=== PATIENT | male | born 1970 | race Caucasian/White ===

== ENCOUNTER 2024-06-29 18:49 | Inpatient (IN) | payer OTHER ==
[~2024-06-29] VITALS: Ht 167.6 cm; Wt 79.2 kg
[2024-06-29] MEDS: SODIUM CHLORIDE 0.9% 500 ML IV ONE (20:56)
[2024-06-29 21:00] LABS: BASOPHILS % (AUTO) 0.4 % (0.0-2.0); EOSINOPHILS % (AUTO) 0.2 % (1.0-6.0); HEMOGLOBIN 15.6 g/dL (13.5-17.5); LYMPHOCYTES # (AUTO) 0.8 K/uL (1.0-4.8); MEAN CORPUSCULAR HEMOGLOBIN 32.4 pg (26.0-34.0); MEAN CORPUSCULAR HGB CONC 32.5 G/dL (31.0-37.0); MEAN CORPUSCULAR VOLUME 100 fL (80-100); MONOCYTES # (AUTO) 0.7 K/uL (0.1-1.0); MONOCYTES % (AUTO) 6.4 % (2.0-9.0); PLATELET COUNT (AUTO) 281 K/uL (150-450); RED BLOOD CELL COUNT(AUTO) 4.81 MIL/uL (4.50-5.90); RED CELL DISTRIBUTION WIDTH 14.3 % (11.5-14.5); WHITE BLOOD COUNT (AUTO) 11.6 K/uL (4.5-11.0)
[2024-06-29 21:18] LABS: ALANINE AMINOTRANSFERASE 14 U/L (12-78); ALBUMIN 1.9 g/dL (3.4-5.0); ALKALINE PHOSPHATASE 141 U/L (46-116); ANION GAP 14 mmol/L (8-16); ASPARTATE AMINOTRANSFERASE 16 U/L (15-37); BILIRUBIN,TOTAL 0.8 mg/dL (0.1-1.0); CALCIUM, TOTAL 8.4 mg/dL (8.8-10.5); CARBON DIOXIDE 22 mmol/L (22-29); CHLORIDE 99 mmol/L (98-107); CREATININE 0.95 mg/dL (0.60-1.30); GLOMERULAR FILTR. RATE CALC > 60 mL/min (>60); LIPASE 13 U/L (16-77); POTASSIUM 4.8 mmol/L (3.5-5.1); SODIUM SERUM 135 mmol/L (136-145); TOTAL PROTEIN, SERUM 6.2 g/dL (6.4-8.2); UREA NITROGEN, BLOOD 12 mg/dL (7-18)
[2024-06-29 21:22] LABS: APPEARANCE,URINE CLEAR (CLEAR); BILIRUBIN,URINE NEGATIVE (NEGATIVE); COLOR,URINE LIGHT YELLOW (YELLOW); GLUCOSE, URINE (UA) >=1000 mg/dL (NEGATIVE); KETONES,URINE 40-60 mg/dL (NEGATIVE); LEUKOCYTE ESTERASE ,URINE MODERATE (NEGATIVE); NITRATE,URINE NEGATIVE (NEGATIVE); OCCULT BLOOD,URINE SMALL (NEGATIVE); PROTEIN,URINE 100-200,SEE CONFIRM mg/dL (NEGATIVE); SPECIFIC GRAVITIY, URINE 1.041 (1.003-1.030); UROBILINOGEN,URINE <=1.0 mg/dL (<=1.0)
[2024-06-29 21:26] LABS: GLUCOSE,RANDOM 413 mg/dL (70-110)
[2024-06-29 21:27] LABS: ACETONE,BLOOD 1:16 (NEGATIVE)
[2024-06-29 21:32] LABS: BACTERIA,URINE Few /HPF (None Seen); RBC,URINE 0-2 /HPF (0-2); SQUAMOUS EPITHELIAL CELL,UR Few /LPF (None Seen); SULFOSALICYLIC ACID,URINE 2+ (Negative); YEAST,URINE Moderate /HPF (None Seen)
[2024-06-29] MEDS: INSULIN REGULAR, HUMAN 100 UNITS/ML IVP ONE (21:36)
[2024-06-29] MEDS: CLINDAMYCIN 600 MG/D5% WATER 50 ML IV ONE (23:06)
[2024-06-29] MEDS: VANCOMYCIN 1.25 GM/WATER(PEG) 250 ML IV ONE (23:07)
[2024-06-29] MEDS ORDERED: IPRATROPIUM BROMIDE 0.5 MG/2.5 ML NEB SOLUTION NEB PRN (23:45)
[2024-06-29] MEDS ORDERED: MORPHINE SULFATE 2 MG/ML SYRINGE IVP PRN (23:45)
[2024-06-29] MEDS ORDERED: MAGNESIUM HYDROXIDE SUSPENSION 30 ML UDCUP PO PRN (23:45)
[2024-06-29] MEDS ORDERED: ACETAMINOPHEN 325 MG TABLET PO PRN (23:45)
[2024-06-29] MEDS ORDERED: ALBUTEROL SULFATE 2.5 MG/0.5 ML NEB SOLUTION NEB PRN (23:45)
[2024-06-29] MEDS ORDERED: BISACODYL 10 MG RECTAL RECTAL SUPPOSITORY PR PRN (23:45)
[2024-06-29] MEDS ORDERED: ONDANSETRON HCL 4 MG/2 ML VIAL IVP PRN (23:45)
[2024-06-29] MEDS ORDERED: ZOLPIDEM TARTRATE 5 MG TABLET PO PRN (23:45)
[2024-06-30] MEDS: HEPARIN SODIUM,PORCINE 5,000 UNITS/ML VIAL SQ SCH (02:05)
[2024-06-30] MEDS: PANTOPRAZOLE SODIUM 40 MG DR TABLET PO SCH (08:37)
[2024-06-30] MEDS ORDERED: DEXTROSE 50%-WATER 25 GM/50 ML SYRINGE IVP PRN (15:30)
[2024-06-30] MEDS: INSULIN LISPRO 100 UNITS/ML SQ PRN (15:49)
[2024-06-30] MEDS: VANCOMYCIN HCL 1 GM/D5% WATER 200 ML IV ONE (20:31)
[2024-06-30 21:06] VITALS: BP 136/98; PULSE 105; RESP 18; TEMP 97.6; O2SAT 98
[2024-06-30] MEDS: INSULIN GLARGINE,HUM.REC.ANLOG 100 UNITS/ML SQ SCH (21:32)
[2024-07-01] MEDS ORDERED: SODIUM CHLORIDE 0.9% 500 ML IV ONE (00:48)
[2024-07-01] MEDS: PIPERACILLIN/TAZO 3.375 GM/D5W 50 ML IV SCH (00:50)
[2024-07-01 03:47] VITALS: BP_SYST 123; BP_DIAS 7; BP_DIAS 74; PULSE 96; RESP 18; TEMP 97.9
[2024-07-01] MEDS: VANCOMYCIN HCL 1 GM/D5% WATER 200 ML IV SCH (08:27)
[2024-07-01 08:49] VITALS: BP 129/72; PULSE 100; RESP 18; TEMP 97.4; O2SAT 98
[2024-07-01 08:52] LABS: ANION GAP 7 mmol/L (8-16); CALCIUM, TOTAL 8.8 mg/dL (8.8-10.5); CARBON DIOXIDE 31 mmol/L (22-29); CHLORIDE 103 mmol/L (98-107); CREATININE 1.18 mg/dL (0.60-1.30); GLOMERULAR FILTR. RATE CALC > 60 mL/min (>60); GLUCOSE,RANDOM 103 mg/dL (70-110); POTASSIUM 4.1 mmol/L (3.5-5.1); SODIUM SERUM 141 mmol/L (136-145); UREA NITROGEN, BLOOD 19 mg/dL (7-18)
[2024-07-01 11:29] LABS: BASOPHILS % (AUTO) 1.2 % (0.0-2.0); EOSINOPHILS % (AUTO) 1.3 % (1.0-6.0); HEMATOCRIT 49.6 % (41-53); HEMOGLOBIN 16.2 g/dL (13.5-17.5); LYMPHOCYTES # (AUTO) 0.9 K/uL (1.0-4.8); LYMPHOCYTES % (AUTO) 7.1 % (22.0-44.0); MEAN CORPUSCULAR HEMOGLOBIN 32.3 pg (26.0-34.0); MEAN CORPUSCULAR HGB CONC 32.7 G/dL (31.0-37.0); MEAN CORPUSCULAR VOLUME 99 fL (80-100); MONOCYTES # (AUTO) 0.9 K/uL (0.1-1.0); MONOCYTES % (AUTO) 7.4 % (2.0-9.0); NEUTROPHILS # (AUTO) 10.1 K/uL (1.8-7.7); PLATELET COUNT (AUTO) 343 K/uL (150-450); RED BLOOD CELL COUNT(AUTO) 5.03 MIL/uL (4.50-5.90); RED CELL DISTRIBUTION WIDTH 14.1 % (11.5-14.5); WHITE BLOOD COUNT (AUTO) 12.2 K/uL (4.5-11.0)
[2024-07-01 12:03] LABS: ALANINE AMINOTRANSFERASE 17 U/L (12-78); ALBUMIN 1.9 g/dL (3.4-5.0); ALKALINE PHOSPHATASE 127 U/L (46-116); ASPARTATE AMINOTRANSFERASE 19 U/L (15-37); BILIRUBIN,TOTAL 0.5 mg/dL (0.1-1.0); TOTAL PROTEIN, SERUM 6.6 g/dL (6.4-8.2)
[2024-07-01 16:00] VITALS: BP 139/91; PULSE 96; RESP 18; TEMP 98.2; O2SAT 98
[2024-07-01 19:26] VITALS: BP 129/78; PULSE 99; RESP 18; TEMP 98.5; O2SAT 100
[2024-07-02 04:36] VITALS: BP 133/80; PULSE 89; RESP 18; TEMP 98.5; O2SAT 99
[2024-07-02 08:06] VITALS: BP 135/85; PULSE 97; RESP 19; TEMP 97.7; O2SAT 97
[2024-07-02 08:28] LABS: ANION GAP 10 mmol/L (8-16); CARBON DIOXIDE 27 mmol/L (22-29); CHLORIDE 102 mmol/L (98-107); CREATININE 1.18 mg/dL (0.60-1.30); GLOMERULAR FILTR. RATE CALC > 60 mL/min (>60); GLUCOSE,RANDOM 96 mg/dL (70-110); POTASSIUM 3.6 mmol/L (3.5-5.1); SODIUM SERUM 139 mmol/L (136-145); UREA NITROGEN, BLOOD 24 mg/dL (7-18); VANCOMYCIN,RANDOM 19.7 mcg/mL (25.0-50.0)
[2024-07-02] MEDS: HYDROCODONE/ACETAMINOPHEN 5-325 MG TABLET PO PRN (10:12)
[2024-07-02 19:59] VITALS: BP 134/92; PULSE 99; RESP 18; TEMP 97.5; O2SAT 98
[2024-07-02] MEDS ORDERED: SODIUM CHLORIDE 0.9% 500 ML IV ONE (20:03)
[2024-07-03 04:19] VITALS: BP 124/84; PULSE 93; RESP 18; TEMP 98; O2SAT 96
[2024-07-03 08:17] VITALS: BP 149/91; PULSE 97; RESP 18; TEMP 97.9; O2SAT 98
[2024-07-03 09:03] LABS: ANION GAP 7 mmol/L (8-16); CALCIUM, TOTAL 8.7 mg/dL (8.8-10.5); CARBON DIOXIDE 28 mmol/L (22-29); CHLORIDE 104 mmol/L (98-107); CREATININE 1.17 mg/dL (0.60-1.30); GLOMERULAR FILTR. RATE CALC > 60 mL/min (>60); GLUCOSE,RANDOM 97 mg/dL (70-110); POTASSIUM 4.5 mmol/L (3.5-5.1); SODIUM SERUM 139 mmol/L (136-145); UREA NITROGEN, BLOOD 23 mg/dL (7-18)
[2024-07-03 12:30] LABS: GLUCOMETER DEV NAME(LOC) 6N.2B; GLUCOSE,POINT OF CARE 127 MG/DL (70-110)
[2024-07-03 12:30] LABS: GLUCOMETER DEV NAME(LOC) 6S.1D; GLUCOSE,POINT OF CARE 376 MG/DL (70-110)
[2024-07-03 12:30] LABS: GLUCOMETER DEV NAME(LOC) ER.7; GLUCOSE,POINT OF CARE 281 MG/DL (70-110)
[2024-07-03 12:30] LABS: GLUCOMETER DEV NAME(LOC) 6S.1D; GLUCOSE,POINT OF CARE 249 MG/DL (70-110)
[2024-07-03 12:30] LABS: GLUCOMETER DEV NAME(LOC) 6N.2B; GLUCOSE,POINT OF CARE 352 MG/DL (70-110)
[2024-07-03 12:30] LABS: GLUCOMETER DEV NAME(LOC) ER.7; GLUCOSE,POINT OF CARE 351 MG/DL (70-110)
[2024-07-03 12:31] LABS: GLUCOMETER DEV NAME(LOC) 6S.1D; GLUCOSE,POINT OF CARE 272 MG/DL (70-110)
[2024-07-03 12:31] LABS: GLUCOMETER DEV NAME(LOC) 6N.1B; GLUCOSE,POINT OF CARE 229 MG/DL (70-110)
[2024-07-03 12:31] LABS: GLUCOMETER DEV NAME(LOC) 6N.1B; GLUCOSE,POINT OF CARE 145 MG/DL (70-110)
[2024-07-03 12:31] LABS: GLUCOMETER DEV NAME(LOC) 6S.2; GLUCOSE,POINT OF CARE 287 MG/DL (70-110)
[2024-07-03 12:31] LABS: GLUCOMETER DEV NAME(LOC) 6S.1D; GLUCOSE,POINT OF CARE 227 MG/DL (70-110)
[2024-07-03 12:31] LABS: GLUCOMETER DEV NAME(LOC) 6N.2B; GLUCOSE,POINT OF CARE 104 MG/DL (70-110)
[2024-07-03 16:25] VITALS: BP 123/65; PULSE 96; RESP 18; TEMP 97.9; O2SAT 97
[2024-07-03 17:56] LABS: HEMATOCRIT 50.2 % (41-53); HEMOGLOBIN 15.9 g/dL (13.5-17.5)
[2024-07-03 19:45] VITALS: BP 121/82; PULSE 100; RESP 18; TEMP 97.9; O2SAT 94
[2024-07-03 20:20] LABS: GLUCOMETER DEV NAME(LOC) 4E.2; GLUCOSE,POINT OF CARE 198 MG/DL (70-110)
[2024-07-03 20:20] LABS: GLUCOMETER DEV NAME(LOC) 4E.2; GLUCOSE,POINT OF CARE 222 MG/DL (70-110)
[2024-07-04 04:06] LABS: HEPATITIS C AB (EIA) Non Reactive (Non Reactive)
[2024-07-04 04:15] VITALS: BP 142/83; PULSE 101; RESP 18; TEMP 98.1; O2SAT 98
[2024-07-04 05:56] LABS: GLUCOMETER DEV NAME(LOC) 6N.1B; GLUCOSE,POINT OF CARE 299 MG/DL (70-110)
[2024-07-04 05:56] LABS: GLUCOMETER DEV NAME(LOC) 6N.1B; GLUCOSE,POINT OF CARE 111 MG/DL (70-110)
[2024-07-04 08:00] VITALS: BP 128/87; PULSE 100; RESP 18; TEMP 97.8; O2SAT 98
[2024-07-04 11:04] LABS: ANION GAP 6 mmol/L (8-16); CALCIUM, TOTAL 8.3 mg/dL (8.8-10.5); CARBON DIOXIDE 26 mmol/L (22-29); CHLORIDE 102 mmol/L (98-107); CREATININE 1.21 mg/dL (0.60-1.30); GLOMERULAR FILTR. RATE CALC > 60 mL/min (>60); GLUCOSE,RANDOM 261 mg/dL (70-110); POTASSIUM 4.1 mmol/L (3.5-5.1); SODIUM SERUM 134 mmol/L (136-145); UREA NITROGEN, BLOOD 25 mg/dL (7-18)
[2024-07-04 11:41] LABS: GLUCOMETER DEV NAME(LOC) 5S.1D; GLUCOSE,POINT OF CARE 284 MG/DL (70-110)
[2024-07-04 15:05] VITALS: BP 112/84; PULSE 96; RESP 20; TEMP 97.7; O2SAT 97
[2024-07-04 16:23] LABS: BASOPHILS % (AUTO) 0.6 % (0.0-2.0); HEMATOCRIT 44.7 % (41-53); HEMOGLOBIN 14.3 g/dL (13.5-17.5); LYMPHOCYTES # (AUTO) 0.9 K/uL (1.0-4.8); LYMPHOCYTES % (AUTO) 8.7 % (22.0-44.0); MEAN CORPUSCULAR HEMOGLOBIN 31.5 pg (26.0-34.0); MEAN CORPUSCULAR HGB CONC 31.9 G/dL (31.0-37.0); MEAN CORPUSCULAR VOLUME 99 fL (80-100); MONOCYTES % (AUTO) 9.6 % (2.0-9.0); NEUTROPHILS # (AUTO) 8.3 K/uL (1.8-7.7); NEUTROPHILS % (AUTO) 80.1 % (40.0-70.0); PLATELET COUNT (AUTO) 270 K/uL (150-450); RED BLOOD CELL COUNT(AUTO) 4.53 MIL/uL (4.50-5.90); RED CELL DISTRIBUTION WIDTH 14.2 % (11.5-14.5); WHITE BLOOD COUNT (AUTO) 10.4 K/uL (4.5-11.0)
[2024-07-04] MEDS ORDERED: INSU3INS3 SQ (18:34)
[2024-07-04] MEDS ORDERED: DOXY50 PO (18:34)
[2024-07-04] MEDS ORDERED: NEED-462 SQ (18:34)
[2024-07-04] MEDS ORDERED: LEVO750T68 PO (18:34)
[2024-07-04] MEDS: SODIUM CHLORIDE 0.9% 500 ML IV ONE (19:53)
[2024-07-04] MEDS: VANCOMYCIN HCL 750 MG in DEXTROSE 5%-WATER 250 ML IV SCH (20:09)
[2024-07-04 21:00] VITALS: BP 120/85; PULSE 99; RESP 18; TEMP 98; O2SAT 96
[2024-07-05 05:40] LABS: GLUCOMETER DEV NAME(LOC) 6N.1B; GLUCOSE,POINT OF CARE 211 MG/DL (70-110)
[2024-07-05 05:55] LABS: GLUCOMETER DEV NAME(LOC) 4E.2; GLUCOSE,POINT OF CARE 218 MG/DL (70-110)
[2024-07-05 05:55] LABS: GLUCOMETER DEV NAME(LOC) 5S.1D; GLUCOSE,POINT OF CARE 190 MG/DL (70-110)
[2024-07-05 05:58] VITALS: BP 128/65; PULSE 95; RESP 18; TEMP 97.9; O2SAT 98
[2024-07-05 07:48] LABS: CALCIUM, TOTAL 8.7 mg/dL (8.8-10.5); CREATININE 1.42 mg/dL (0.60-1.30); POTASSIUM 4.3 mmol/L (3.5-5.1)
[2024-07-05 08:17] VITALS: BP 141/89; PULSE 89; RESP 20; TEMP 97.6; O2SAT 98
[2024-07-05] MEDS ORDERED: CLIN300C58 PO (15:05)
[2024-07-05 15:47] VITALS: BP 131/77; PULSE 96; RESP 18; TEMP 97.7; O2SAT 98
[2024-07-06 11:26] LABS: GLUCOMETER DEV NAME(LOC) 4E.2; GLUCOSE,POINT OF CARE 266 MG/DL (70-110)
== END 2024-07-05 17:10 | disposition home health service (06) | DRG 380 ==
LOC: EDUNIT# 18:49 → EMS 18:50 → EDH 23:37 → 6S 06-30 21:10 → 4E 07-02 18:56
PROVIDERS: ADMIT Hospitalist; ATTEND Hospitalist
PROC: 05H933Z Insertion of Infusion Device into Right Brachial Vein, Percutaneous Approach (ICD-10-PCS; principal; 2024-07-02)
PROC: B54MZZA Ultrasonography of Right Upper Extremity Veins, Guidance (ICD-10-PCS; 2024-07-02)
DX: E11.621 Type 2 diabetes mellitus with foot ulcer (principal); L98.499 Non-pressure chronic ulcer of skin of other sites with unspecified severity; E43 Unspecified severe protein-calorie malnutrition; E11.40 Type 2 diabetes mellitus with diabetic neuropathy, unspecified; E11.319 Type 2 diabetes mellitus with unspecified diabetic retinopathy without macular edema; E87.1 Hypo-osmolality and hyponatremia; L03.115 Cellulitis of right lower limb; E11.51 Type 2 diabetes mellitus with diabetic peripheral angiopathy without gangrene; L03.116 Cellulitis of left lower limb; E11.65 Type 2 diabetes mellitus with hyperglycemia; I10 Essential (primary) hypertension; E78.00 Pure hypercholesterolemia, unspecified; I25.10 Atherosclerotic heart disease of native coronary artery without angina pectoris; Z79.899 Other long term (current) drug therapy; Z79.4 Long term (current) use of insulin; Z83.3 Family history of diabetes mellitus; Z68.28 Body mass index [BMI] 28.0-28.9, adult
CPT/HCPCS: 36245; 36569; 76937; 80048; 80053; 80076; 80202; 81001; 81002; 82009; 82962; 83605; 83690; 84145; 85014; 85018; 85025; 86803; 87040; 87340; 93925; 99285; G0378; J1644; J1815; J2543; J3370; J3490; J7040; J7060